=== PATIENT | female | born 1950 | race Caucasian/White ===

== ENCOUNTER 2016-04-28 11:50 | Outpatient (CLI) | payer MEDICARE, OTHER | END 2016-04-28 11:51 | LOC: HPCALD 11:50 | PROVIDERS: ATTEND Physician Assistant | DX: L98.499 Non-pressure chronic ulcer of skin of other sites with unspecified severity (principal) | CPT/HCPCS: 87070; 87205 ==

== ENCOUNTER 2016-07-03 13:10 | Outpatient (CLI) | payer MEDICARE, MEDICAID ==
[2016-07-03 13:29] LABS: #Basophils 0.1 thou/uL (0.0-0.2); #Lymphocytes 0.4 thou/uL (1.20-3.40); #Monocytes 0.4 thou/uL (0.11-0.59); #Neutrophils 3.7 thou/uL (1.40-6.50); %Basophils 1.6 % (0.0-1.0); %Eosinophils 0.9 % (0.0-10.0); %Lymphocytes 9.3 % (21.0-51.0); %Monocytes 8.1 % (0.0-10.0); Hemoglobin 9.4 g/dL (12.0-16.0); Mean Corpuscular HGB CONC 33.3 g/dL (32.0-36.0); Mean Corpuscular Hemoglobin 33.2 pg (27.0-31.0); Mean Corpuscular Volume 99.8 fl (81.0-99.0); Mean Platelet Volume 5.7 fL (7.4-10.4); Platelet Count 261 thou/uL (130-400); RBC Distribution Width 15.7 % (11.5-14.5); Red Blood Cell (RBC) Count 2.82 mill/uL (4.20-5.40); White Blood Cell (WBC) Count 4.7 thou/uL (4.8-10.8)
[2016-07-03 13:30] LABS: MDiff Complete? YES; Manual Diff?? NO
[2016-07-03 13:38] LABS: ALT (SGPT) 8 U/L (8-55); AST (SGOT) 12 U/L (5-34); Albumin 3.4 g/dL (3.4-4.8); Alkaline Phosphatase 79 U/L (40-150); Anion Gap 15 mmol/L (10-20); BUN (Urea Nitrogen) 6 mg/dL (9.8-20.1); Bilirubin, Total 0.5 mg/dL (0.2-1.2); Calc. Creatinine Clearance 0 mL/min (70-130); Calcium 8.7 mg/dL (7.8-10.44); Carbon Dioxide 16 mmol/L (23-31); Chloride 105 mmol/L (98-107); Estimated GFR-MDRD 89; Globulin 2.8 g/dL (2.4-3.5); Glucose 67 mg/dL (80-115); Magnesium 1.9 mg/dL (1.6-2.6); Potassium 4.3 mmol/L (3.5-5.1); Protein, Total 6.2 g/dL (6.0-8.3); Sodium 132 mmol/L (136-145)
== END 2016-07-03 13:11 | disposition home or self-care (01) ==
LOC: HPCALD 13:10
PROVIDERS: ATTEND Family Medicine
DX: E89.0 Postprocedural hypothyroidism (principal); I42.5 Other restrictive cardiomyopathy; C32.1 Malignant neoplasm of supraglottis
CPT/HCPCS: 36415; 80053; 83735; 83880; 84443; 85025

== ENCOUNTER 2016-09-30 14:27 | Outpatient (CLI) | payer MEDICARE, MEDICAID | END 2016-09-30 14:28 | disposition home or self-care (01) | LOC: BURLABSP 14:27 | PROVIDERS: ATTEND Family Medicine | DX: C32.1 Malignant neoplasm of supraglottis (principal) | CPT/HCPCS: 87070; 87077; 87186; 87205 ==

== ENCOUNTER 2016-10-05 10:09 | Outpatient (CLI) | payer MEDICARE, MEDICAID ==
[2016-10-05 11:08] LABS: #Lymphocytes 0.5 thou/uL (1.20-3.40); #Monocytes 0.4 thou/uL (0.11-0.59); #Neutrophils 3.9 thou/uL (1.40-6.50); %Basophils 0.8 % (0.0-1.0); %Eosinophils 0.7 % (0.0-10.0); %Lymphocytes 10.4 % (21.0-51.0); %Monocytes 7.4 % (0.0-10.0); %Neutrophils 80.7 % (42.0-75.0); Hemoglobin 11.6 g/dL (12.0-16.0); Mean Corpuscular HGB CONC 34.4 g/dL (32.0-36.0); Mean Corpuscular Hemoglobin 32.4 pg (27.0-31.0); Mean Corpuscular Volume 94.1 fl (81.0-99.0); Mean Platelet Volume 4.6 fL (7.4-10.4); Platelet Count 195 thou/uL (130-400); RBC Distribution Width 12.3 % (11.5-14.5); Red Blood Cell (RBC) Count 3.59 mill/uL (4.20-5.40); White Blood Cell (WBC) Count 4.8 thou/uL (4.8-10.8)
[2016-10-05 11:15] LABS: ALT (SGPT) 13 U/L (8-55); AST (SGOT) 18 U/L (5-34); Albumin 3.9 g/dL (3.4-4.8); Alkaline Phosphatase 77 U/L (40-150); Anion Gap 14 mmol/L (10-20); BUN (Urea Nitrogen) 8 mg/dL (9.8-20.1); Bilirubin, Total 0.6 mg/dL (0.2-1.2); Calc. Creatinine Clearance 0 mL/min (70-130); Calcium 9.4 mg/dL (7.8-10.44); Carbon Dioxide 21 mmol/L (23-31); Cardiac Risk 2.3 (Less than 4.5); Chloride 96 mmol/L (98-107); Cholesterol 136 mg/dl (< 200 Desired); Estimated GFR-MDRD 81; Globulin 2.7 g/dL (2.4-3.5); Glucose 82 mg/dL (80-115); HDL Cholesterol 58 mg/dL (>60 Neg Risk); LDL Cholesterol, Calculated 61 mg/dL; Protein, Total 6.6 g/dL (6.0-8.3); Sodium 126 mmol/L (136-145); Triglycerides 87 mg/dL (Less than 150)
== END 2016-10-05 10:10 | disposition home or self-care (01) ==
LOC: HPCALD 10:09
PROVIDERS: ATTEND Family Medicine
DX: E89.0 Postprocedural hypothyroidism (principal); E87.1 Hypo-osmolality and hyponatremia; D64.9 Anemia, unspecified; E78.5 Hyperlipidemia, unspecified
CPT/HCPCS: 36415; 80053; 80061; 84443; 85025

== ENCOUNTER 2016-11-04 10:01 | Outpatient (CLI) | payer MEDICARE, MEDICAID ==
[2016-11-04 11:25] LABS: Anion Gap 12 mmol/L (10-20); BUN (Urea Nitrogen) 7 mg/dL (9.8-20.1); Calc. Creatinine Clearance 0 mL/min (70-130); Calcium 9.7 mg/dL (7.8-10.44); Carbon Dioxide 24 mmol/L (23-31); Chloride 99 mmol/L (98-107); Estimated GFR-MDRD 85; Glucose 88 mg/dL (80-115); Magnesium 1.8 mg/dL (1.6-2.6); Potassium 4.5 mmol/L (3.5-5.1); Sodium 130 mmol/L (136-145)
== END 2016-11-04 10:02 | disposition home or self-care (01) ==
LOC: HPCALD 10:01
PROVIDERS: ATTEND Family Medicine
DX: E87.1 Hypo-osmolality and hyponatremia (principal)
CPT/HCPCS: 36415; 80048; 83735

== ENCOUNTER 2018-03-21 09:25 | Outpatient (CLI) | payer MEDICARE, OTHER ==
--- NOTE | 2018-03-21 19:03 | RAD ---
RIGHT KNEE FOUR VIEWS: Date: 03-21-18 FINDINGS: No fracture or joint effusion was seen. Osteophytes are almost nonexistent and there is no narrowing of the joint. There is, however, some calcification of the lateral meniscus and perhaps to a lesser e xtent the medial. This can sometimes be seen in various calcium deposition diseases. IMPRESSION: No significant arthritic change. Meniscal calcifications as noted. See above. POS: HOME
--- NOTE | 2018-03-21 19:07 | RAD ---
LEFT KNEE FOUR VIEWS: Date: 03-21-18 Comparison: Right knee, same date. FINDINGS: Findings are similar in that there is minor arthritic change at best consisting of very minor osteoph ytes. No fracture or effusion was seen. The joint spaces have expected width. Some very faint calcifi cation is seen in each of the menisci. IMPRESSION: Minimal degenerative change. Faint meniscal calcifications. POS: HOME
== END 2018-03-21 09:26 | disposition home or self-care (01) ==
LOC: BURRAD 09:25
PROVIDERS: ATTEND Family Medicine
DX: M17.0 Bilateral primary osteoarthritis of knee (principal); M25.562 Pain in left knee

== ENCOUNTER 2018-09-13 11:42 | Emergency (ER) | payer MEDICARE, MEDICAID ==
[2018-09-13] MEDS ORDERED: Adacel (T-DAP) 0.5 ML SYRINGE ONE (12:32)
--- NOTE | 2018-09-13 13:05 | RAD ---
XR Wrist 3 Rt View STANDARD History: Trauma Comparison: None. Findings: There is a possible fracture of the medial margin of the distal radius extending into the r adiolunate articulation at the lunate fossa. Chondrocalcinosis the triangular fibrocartilage along with the lunotriquetral ligament. Advanced degenerative disease of the thumb carpometacarpal joint. Small effusion of the wrist. Mild osseous demineralization. Narrowing of the second and third metacarpal phalangeal joints. Impression: Findings highly suspicious for intra-articular distal radius fracture medial margin lunat e fossa.
--- NOTE | 2018-09-13 13:06 | RAD ---
XR Humerus Lt 2 View STANDARD History: Trauma. Injury. Tripped and fell. Comparison: None. Findings: No acute fracture or malalignment of the humerus. Dorsal soft tissue calcification is prese nt. No radiopaque foreign object Impression: No acute fracture of the humerus.
--- NOTE | 2018-09-13 13:06 | RAD ---
XR Chest 1 View Portable History: Trauma Comparison: None. Findings: Port catheter tip sits at the inferior SVC. Lungs are clear. No pneumothorax. No effusion. No acute osseous abnormality. Impression: No acute intrathoracic abnormality.
== END 2018-09-13 13:07 | disposition home or self-care (01) ==
LOC: BURERS 11:42
DX: S63.501A Unspecified sprain of right wrist, initial encounter (principal); J44.9 Chronic obstructive pulmonary disease, unspecified; I10 Essential (primary) hypertension; K21.9 Gastro-esophageal reflux disease without esophagitis; Z87.891 Personal history of nicotine dependence; Z79.1 Long term (current) use of non-steroidal anti-inflammatories (NSAID); Z79.899 Other long term (current) drug therapy; Z79.891 Long term (current) use of opiate analgesic; W18.30XA Fall on same level, unspecified, initial encounter
CPT/HCPCS: 29125; 71045; 90471; 90715

== ENCOUNTER 2019-10-05 13:26 | Emergency (ER) | payer MEDICARE, MEDICAID ==
[2019-10-05] MEDS ORDERED: Ibuprofen 200 MG TAB ONE (13:48)
--- NOTE | 2019-10-05 14:58 | RAD ---
THREE VIEWS OF THE LEFT WRIST: INDICATION: Left wrist pain. FINDINGS: There is chondrocalcinosis within the hyalin cartilage of the left wrist as well as the CFC. There i s mild SUT and moderate 1st SMC osteoarthrosis. Carpal alignment is preserved. There is soft tissue swelling surrounding the left breast. No acute fracture is evident. IMPRESSION: 1. 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 2. 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 POS: [facility]
== END 2019-10-05 14:41 | disposition home or self-care (01) ==
LOC: BURERS 13:26
DX: M11.232 Other chondrocalcinosis, left wrist (principal); J44.9 Chronic obstructive pulmonary disease, unspecified; K21.9 Gastro-esophageal reflux disease without esophagitis; I10 Essential (primary) hypertension; Z87.891 Personal history of nicotine dependence; Z79.899 Other long term (current) drug therapy

== ENCOUNTER 2019-11-23 07:53 | Outpatient (CLI) | payer MEDICARE, OTHER ==
[2019-11-23] MEDS ORDERED: Iopamidol 370 76% 100 ML VIAL ONE (11:07)
--- NOTE | 2019-11-23 20:50 | CT ---
CT OF THE CHEST WITH CONTRAST: Date: 11/23/[address] of the chest was performed in this patient with a prior history of laryngeal cancer. Compar daniel is made with the prior study dated 08/31/2016. The lungs are clear, except for some dependent atelectasis posteriorly. A bulla or pneumatocele in th e base of the right upper lobe is stable a little different than the prior exam. I do not see any pul monary masses or nodules to suspect metastatic disease. The mediastinum showed no mass or adenopathy. Calcific changes are seen in the aortic arch and some coronary artery calcifications are present. Th ere is no pericardial effusion. All bony structures appear normal with no sign of lytic or blastic le sions. The scan went into the upper abdomen down to about the mid renal level. As such, all of the liver and spleen were scanned, and much of the pancreas. There was no sign of focal disease in any of these or arina. Down through the mid renal level, the kidneys showed no acute changes. A tiny cyst is suggested in the upper pole of the right kidney. A calcified granuloma is suggested in the splenic hilum. Incidentally noted was an indwelling Port-A-Cath, whose tip is in the area of the distal superior reagan a cava. IMPRESSION: No adverse change since the 2017 exam. The appearance of the chest is stable. There is no evidence of metastatic disease. POS: HOME
--- NOTE | 2019-11-23 21:04 | CT ---
CT OF THE NECK SOFT TISSUES WITH CONTRAST 11/23/19 Comparison is made with the prior CT dated 08/31/16. Axial slices were acquired after administering IV contrast, then coronal and sagittal reconstructions were done. The patient has had prior laryngectomy which accounts for the soft tissue asymmetry at the laryngeal level. The scan is quite similar to the prior study except there is less stranding in the soft tissue s than there was before. I do not see any definite new mass. No adenopathy of concern was noted. The patient has a tracheostomy in place as before. The esophagus joins the airway as previously with the ostium at that point being fairly narrow. A tube is noted in the upper part of this upper esophageal narrowing. There were no areas of pathologic enhancement. Portions of the lower and posterior brain w ere included which showed no abnormal enhancement or obvious mass. No masses were seen in the neck at the moment. The retro-orbital areas were included which were unremarkable. The visible paranasal sin uses and mastoid air cells are clear. Extensive degenerative changes are present in the cervical spin e as previously, particularly at the C4-C5 and C5-C6 levels. IMPRESSION: No adverse change since the prior scan. Less streaking in some of the soft tissues around the operati ve bed than previously. Cannot confirm any nodes of significant size. PET scanning would be the most accurate at determining subtle recurrent disease, however. POS: HOME
== END 2019-11-23 07:54 | disposition home or self-care (01) ==
LOC: BURCT 07:53
DX: Z01.818 Encounter for other preprocedural examination (principal); C32.9 Malignant neoplasm of larynx, unspecified
CPT/HCPCS: 36415; 70491; 71260; 82565; Q9967

== ENCOUNTER 2021-05-08 13:40 | Emergency (ER) | payer OTHER, MEDICAID ==
[2021-05-08] MEDS ORDERED: Fentanyl 100 MCG/2 ML VIAL ONE (15:03)
[2021-05-08] MEDS ORDERED: Sodium Chloride 0.9% 100 ML ONE (15:03)
[2021-05-08] MEDS ORDERED: cefTRIAXone\\ROCEPHIN 1 GM VIAL ONE (15:03)
[2021-05-08 15:06] LABS: ALT (SGPT) 8 U/L (8-55); AST (SGOT) 16 U/L (5-34); Albumin 3.6 g/dL (3.4-4.8); Alkaline Phosphatase 132 U/L (40-110); Anion Gap 17 mmol/L (10-20); BUN (Urea Nitrogen) 15 mg/dL (9.8-20.1); Bilirubin, Total 0.5 mg/dL (0.2-1.2); Calc. Creatinine Clearance 0 mL/min (70-130); Calcium 8.5 mg/dL (7.8-10.44); Carbon Dioxide 19 mmol/L (23-31); Chloride 93 mmol/L (98-107); Globulin 3.1 g/dL (2.4-3.5); Glucose 83 mg/dL (83-110); Potassium 4.7 mmol/L (3.5-5.1); Protein, Total 6.7 g/dL (5.8-8.1); Sodium 124 mmol/L (136-145)
[2021-05-08 15:09] LABS: Hemoglobin 10.7 g/dL (12.0-16.0); Mean Corpuscular HGB CONC 32.5 g/dL (32.0-36.0); Mean Corpuscular Hemoglobin 30.7 pg (27.0-31.0); Mean Corpuscular Volume 94.4 fL (78.0-98.0); Mean Platelet Volume 5.7 fL (7.4-10.4); Platelet Count 165 thou/uL (130-400); RBC Distribution Width 16.5 % (11.5-14.5); Red Blood Cell (RBC) Count 3.49 mill/uL (4.20-5.40); White Blood Cell (WBC) Count 6.8 thou/uL (4.8-10.8)
[2021-05-08 16:43] LABS: Band 3 % (5-11); Eosinophils 1 % (0-10); Lymphocytes 16 % (21-51); MDiff Complete? YES; Monocytes 5 % (0-10); Neutrophil 74 % (42-75)
== END 2021-05-08 17:30 | disposition short-term general hospital (02) ==
LOC: BURERS 13:40
DX: S82.101A Unspecified fracture of upper end of right tibia, initial encounter for closed fracture (principal); R79.1 Abnormal coagulation profile; K21.9 Gastro-esophageal reflux disease without esophagitis; I10 Essential (primary) hypertension; J44.9 Chronic obstructive pulmonary disease, unspecified; W19.XXXA Unspecified fall, initial encounter; Z87.891 Personal history of nicotine dependence; Z79.899 Other long term (current) drug therapy; Z85.21 Personal history of malignant neoplasm of larynx
CPT/HCPCS: 36415; 80053; 83605; 85025; 85379; 87040; 96374; 96375; J0696; J3010; J3490

== ENCOUNTER 2021-05-15 19:15 | Inpatient (IN) | payer MEDICARE, MEDICAID ==
[2021-05-15] MEDS ORDERED: Meclizine HCl 25 MG TAB PO PRN (20:12)
[2021-05-15] MEDS: Metoprolol Tartrate 50 MG TAB PO SCH (20:49)
[2021-05-15] MEDS: Gabapentin 300 MG CAP PO SCH (20:49)
[2021-05-15] MEDS: Cephalexin 250 MG CAP PO SCH (20:49)
[2021-05-15] MEDS: Atorvastatin Calcium 10 MG TAB PO SCH (20:49)
[2021-05-15] MEDS: HYDROcodone/Acetaminophen 10/325 mg Tablet PO PRN (20:51)
[2021-05-16] MEDS: HYDROcodone/Acetaminophen 10/325 mg Tablet PO PRN ×4 (03:21→20:33)
[2021-05-16] MEDS: Levothyroxine Sodium 50 MCG TAB PO SCH (06:01)
[2021-05-16 06:15] LABS: #Basophils 0.1 thou/uL (0.0-0.2); #Eosinphils 0.2 thou/uL (0.0-0.7); #Lymphocytes 0.9 thou/uL (1.20-3.40); #Monocytes 0.4 thou/uL (0.11-0.59); #Neutrophils 3.6 thou/uL (1.40-6.50); %Basophils 1.4 % (0.0-1.0); %Eosinophils 3.4 % (0.0-10.0); %Lymphocytes 18.1 % (21.0-51.0); %Monocytes 7.4 % (0.0-10.0); %Neutrophils 69.7 % (42.0-75.0); ALT (SGPT) Less than 7 U/L (8-55); AST (SGOT) 9 U/L (5-34); Albumin 2.7 g/dL (3.4-4.8); Alkaline Phosphatase 90 U/L (40-110); Anion Gap 14 mmol/L (10-20); BUN (Urea Nitrogen) 5 mg/dL (9.8-20.1); Bilirubin, Total 0.3 mg/dL (0.2-1.2); Calc. Creatinine Clearance 113 mL/min (70-130); Calcium 7.9 mg/dL (7.8-10.44); Carbon Dioxide 20 mmol/L (23-31); Chloride 108 mmol/L (98-107); Globulin 2.6 g/dL (2.4-3.5); Glucose 95 mg/dL (83-110); Mean Corpuscular HGB CONC 32.6 g/dL (32.0-36.0); Mean Corpuscular Volume 95.2 fL (78.0-98.0); Mean Platelet Volume 5.1 fL (7.4-10.4); Platelet Count 221 thou/uL (130-400); Potassium 3.2 mmol/L (3.5-5.1); Protein, Total 5.3 g/dL (5.8-8.1); RBC Distribution Width 17.8 % (11.5-14.5); Red Blood Cell (RBC) Count 2.88 mill/uL (4.20-5.40); Sodium 139 mmol/L (136-145); White Blood Cell (WBC) Count 5.1 thou/uL (4.8-10.8)
[2021-05-16] MEDS ORDERED: Polyethylene Glycol 3350 17 GM Packet PO PRN (07:25)
[2021-05-16] MEDS ORDERED: Ondansetron ODT 4 MG TAB PO PRN (07:25)
[2021-05-16] MEDS ORDERED: FLU VACC QS2021-22(65YR UP)/PF 240 MCG/0.7 ML SYRINGE IM ONE (09:00)
[2021-05-16] MEDS: Metoprolol Tartrate 50 MG TAB PO SCH ×2 (09:29→20:29)
[2021-05-16] MEDS: Potassium Chloride 20 MEQ TAB PO SCH ×2 (09:29→10:38)
[2021-05-16] MEDS: Cephalexin 250 MG CAP PO SCH ×3 (09:30→20:29)
[2021-05-16] MEDS: Enoxaparin Sodium 40 MG/0.4 ML SYRINGE SC SCH (09:30)
[2021-05-16] MEDS: Gabapentin 300 MG CAP PO SCH ×3 (09:31→20:29)
[2021-05-16] MEDS: traMADol HCl 50 MG TAB PO SCH (09:32)
[2021-05-16] MEDS: Losartan 25 MG TAB PO SCH (09:33)
[2021-05-16] MEDS ORDERED: Potassium Bicarbonate/Cit Ac 25 MEQ TAB PO SCH (10:45)
[2021-05-16] MEDS: Atorvastatin Calcium 10 MG TAB PO SCH (20:29)
[2021-05-17] MEDS: HYDROcodone/Acetaminophen 10/325 mg Tablet PO PRN ×5 (01:18→20:39)
[2021-05-17] MEDS: Levothyroxine Sodium 50 MCG TAB PO SCH (05:23)
[2021-05-17] MEDS: traMADol HCl 50 MG TAB PO SCH (09:20)
[2021-05-17] MEDS: Gabapentin 300 MG CAP PO SCH ×3 (09:22→20:30)
[2021-05-17] MEDS: Losartan 25 MG TAB PO SCH (09:22)
[2021-05-17] MEDS: Enoxaparin Sodium 40 MG/0.4 ML SYRINGE SC SCH (09:22)
[2021-05-17] MEDS: Cephalexin 250 MG CAP PO SCH ×3 (09:23→20:29)
[2021-05-17] MEDS: Metoprolol Tartrate 50 MG TAB PO SCH ×2 (09:32→20:30)
[2021-05-17] MEDS ORDERED: Nystatin Powder 15 GM BOT TOP SCH (17:30)
[2021-05-17] MEDS: Atorvastatin Calcium 10 MG TAB PO SCH (20:29)
[2021-05-18] MEDS: HYDROcodone/Acetaminophen 10/325 mg Tablet PO PRN ×5 (01:03→21:00)
[2021-05-18] MEDS: Levothyroxine Sodium 50 MCG TAB PO SCH (05:12)
[2021-05-18] MEDS: Losartan 25 MG TAB PO SCH (08:55)
[2021-05-18] MEDS: traMADol HCl 50 MG TAB PO SCH (08:56)
[2021-05-18] MEDS: Metoprolol Tartrate 50 MG TAB PO SCH ×2 (08:56→20:51)
[2021-05-18] MEDS: Cephalexin 250 MG CAP PO SCH ×3 (08:56→20:59)
[2021-05-18] MEDS: Gabapentin 300 MG CAP PO SCH ×3 (08:58→20:51)
[2021-05-18] MEDS: Enoxaparin Sodium 40 MG/0.4 ML SYRINGE SC SCH (08:59)
[2021-05-18] MEDS: Nystatin Powder 15 GM BOT TOP SCH (08:59)
[2021-05-18] MEDS: Atorvastatin Calcium 10 MG TAB PO SCH (20:51)
[2021-05-18] MEDS ORDERED: Cephalexin 250 MG CAP ONE ×2 (20:56)
[2021-05-18 22:01] LABS: SARS-CoV-2 PCR by NAA Not Detected (NotDetected)
[2021-05-19] MEDS: HYDROcodone/Acetaminophen 10/325 mg Tablet PO PRN ×5 (01:45→21:26)
[2021-05-19] MEDS: Levothyroxine Sodium 50 MCG TAB PO SCH (05:29)
[2021-05-19] MEDS ORDERED: Cephalexin 250 MG CAP ONE (09:51)
[2021-05-19] MEDS: traMADol HCl 50 MG TAB PO SCH (10:03)
[2021-05-19] MEDS: Losartan 25 MG TAB PO SCH (10:04)
[2021-05-19] MEDS: Metoprolol Tartrate 50 MG TAB PO SCH ×2 (10:05→21:28)
[2021-05-19] MEDS: Gabapentin 300 MG CAP PO SCH ×3 (10:05→21:27)
[2021-05-19] MEDS: Cephalexin 250 MG CAP PO SCH ×3 (10:05→21:28)
[2021-05-19] MEDS: Enoxaparin Sodium 40 MG/0.4 ML SYRINGE SC SCH (10:06)
[2021-05-19] MEDS: Nystatin Powder 15 GM BOT TOP SCH ×2 (10:07→21:31)
[2021-05-19] MEDS: Atorvastatin Calcium 10 MG TAB PO SCH (21:27)
[2021-05-20] MEDS: HYDROcodone/Acetaminophen 10/325 mg Tablet PO PRN ×5 (02:57→20:21)
[2021-05-20] MEDS: Levothyroxine Sodium 50 MCG TAB PO SCH (05:29)
[2021-05-20] MEDS: Metoprolol Tartrate 50 MG TAB PO SCH ×2 (09:05→20:23)
[2021-05-20] MEDS: Losartan 25 MG TAB PO SCH (09:05)
[2021-05-20] MEDS: Gabapentin 300 MG CAP PO SCH ×3 (09:05→20:23)
[2021-05-20] MEDS: Cephalexin 250 MG CAP PO SCH ×3 (09:06→20:22)
[2021-05-20] MEDS: traMADol HCl 50 MG TAB PO SCH (09:06)
[2021-05-20] MEDS: Enoxaparin Sodium 40 MG/0.4 ML SYRINGE SC SCH (09:08)
[2021-05-20] MEDS: Atorvastatin Calcium 10 MG TAB PO SCH (20:23)
[2021-05-21] MEDS: HYDROcodone/Acetaminophen 10/325 mg Tablet PO PRN ×5 (03:21→21:47)
[2021-05-21] MEDS: Levothyroxine Sodium 50 MCG TAB PO SCH (05:45)
[2021-05-21] MEDS: Losartan 25 MG TAB PO SCH (10:01)
[2021-05-21] MEDS: Cephalexin 250 MG CAP PO SCH ×3 (10:01→21:46)
[2021-05-21] MEDS: Enoxaparin Sodium 40 MG/0.4 ML SYRINGE SC SCH (10:01)
[2021-05-21] MEDS: Gabapentin 300 MG CAP PO SCH ×3 (10:02→21:47)
[2021-05-21] MEDS: traMADol HCl 50 MG TAB PO SCH (10:03)
[2021-05-21] MEDS: Nystatin Powder 15 GM BOT TOP SCH (10:04)
[2021-05-21] MEDS: Metoprolol Tartrate 50 MG TAB PO SCH ×2 (10:08→21:47)
[2021-05-21] MEDS: Atorvastatin Calcium 10 MG TAB PO SCH (21:46)
[2021-05-22] MEDS: HYDROcodone/Acetaminophen 10/325 mg Tablet PO PRN ×5 (02:09→22:21)
[2021-05-22] MEDS: Levothyroxine Sodium 50 MCG TAB PO SCH (06:00)
[2021-05-22] MEDS: Enoxaparin Sodium 40 MG/0.4 ML SYRINGE SC SCH (08:23)
[2021-05-22] MEDS: traMADol HCl 50 MG TAB PO SCH (08:24)
[2021-05-22] MEDS: Metoprolol Tartrate 50 MG TAB PO SCH ×2 (08:24→11:20)
[2021-05-22] MEDS: Gabapentin 300 MG CAP PO SCH ×3 (08:26→22:04)
[2021-05-22] MEDS: Losartan 25 MG TAB PO SCH (08:31)
[2021-05-22] MEDS: Cephalexin 250 MG CAP PO SCH ×3 (11:20→22:03)
[2021-05-22] MEDS: Nystatin Powder 15 GM BOT TOP SCH (11:37)
[2021-05-22] MEDS: Atorvastatin Calcium 10 MG TAB PO SCH (22:04)
[2021-05-22 23:50] LABS: SARS-CoV-2 PCR by NAA Not Detected (NotDetected)
[2021-05-23] MEDS: HYDROcodone/Acetaminophen 10/325 mg Tablet PO PRN ×5 (03:50→21:35)
[2021-05-23] MEDS: Levothyroxine Sodium 50 MCG TAB PO SCH (05:15)
[2021-05-23] MEDS: Losartan 25 MG TAB PO SCH (08:53)
[2021-05-23] MEDS: Gabapentin 300 MG CAP PO SCH ×3 (08:53→21:35)
[2021-05-23] MEDS: traMADol HCl 50 MG TAB PO SCH (08:54)
[2021-05-23] MEDS: Nystatin Powder 15 GM BOT TOP SCH (08:55)
[2021-05-23] MEDS: Enoxaparin Sodium 40 MG/0.4 ML SYRINGE SC SCH (08:56)
[2021-05-23] MEDS: Metoprolol Tartrate 50 MG TAB PO SCH ×2 (08:56→21:35)
[2021-05-23] MEDS ORDERED: cloNIDine 0.1 MG TAB PO PRN (18:29)
[2021-05-23] MEDS: Atorvastatin Calcium 10 MG TAB PO SCH (21:35)
[2021-05-24] MEDS: Levothyroxine Sodium 50 MCG TAB PO SCH (05:04)
[2021-05-24] MEDS: HYDROcodone/Acetaminophen 10/325 mg Tablet PO PRN ×4 (05:06→21:25)
[2021-05-24] MEDS: Losartan 25 MG TAB PO SCH (10:06)
[2021-05-24] MEDS: Metoprolol Tartrate 50 MG TAB PO SCH ×2 (10:06→21:26)
[2021-05-24] MEDS: Enoxaparin Sodium 40 MG/0.4 ML SYRINGE SC SCH (10:07)
[2021-05-24] MEDS: Gabapentin 300 MG CAP PO SCH ×3 (10:07→21:26)
[2021-05-24] MEDS: Nystatin Powder 15 GM BOT TOP SCH (10:08)
[2021-05-24] MEDS: traMADol HCl 50 MG TAB PO SCH (13:51)
[2021-05-24] MEDS: Atorvastatin Calcium 10 MG TAB PO SCH (21:26)
[2021-05-25] MEDS: Levothyroxine Sodium 50 MCG TAB PO SCH (05:09)
[2021-05-25] MEDS: HYDROcodone/Acetaminophen 10/325 mg Tablet PO PRN ×4 (05:12→17:56)
[2021-05-25] MEDS: Losartan 25 MG TAB PO SCH (09:31)
[2021-05-25] MEDS: Metoprolol Tartrate 50 MG TAB PO SCH ×2 (09:31→20:27)
[2021-05-25] MEDS: Gabapentin 300 MG CAP PO SCH ×3 (09:32→20:26)
[2021-05-25] MEDS: Enoxaparin Sodium 40 MG/0.4 ML SYRINGE SC SCH (09:32)
[2021-05-25] MEDS: Nystatin Powder 15 GM BOT TOP SCH (13:58)
[2021-05-25] MEDS: traMADol HCl 50 MG TAB PO SCH (13:59)
[2021-05-25] MEDS: Atorvastatin Calcium 10 MG TAB PO SCH (20:27)
[2021-05-26] MEDS: HYDROcodone/Acetaminophen 10/325 mg Tablet PO PRN ×5 (02:30→23:04)
[2021-05-26] MEDS: Levothyroxine Sodium 50 MCG TAB PO SCH (05:35)
[2021-05-26] MEDS: traMADol HCl 50 MG TAB PO SCH (08:52)
[2021-05-26] MEDS: Gabapentin 300 MG CAP PO SCH ×3 (08:52→21:14)
[2021-05-26] MEDS: Losartan 25 MG TAB PO SCH (08:52)
[2021-05-26] MEDS: Metoprolol Tartrate 50 MG TAB PO SCH ×2 (08:53→21:14)
[2021-05-26] MEDS: Nystatin Powder 15 GM BOT TOP SCH (08:59)
[2021-05-26] MEDS: Atorvastatin Calcium 10 MG TAB PO SCH (21:14)
[2021-05-27] MEDS: Levothyroxine Sodium 50 MCG TAB PO SCH (06:01)
[2021-05-27] MEDS: Nystatin Powder 15 GM BOT TOP SCH (09:30)
[2021-05-27] MEDS: Losartan 25 MG TAB PO SCH (11:46)
[2021-05-27] MEDS: Gabapentin 300 MG CAP PO SCH ×3 (11:47→21:11)
[2021-05-27] MEDS: Metoprolol Tartrate 50 MG TAB PO SCH ×2 (11:47→21:11)
[2021-05-27] MEDS: traMADol HCl 50 MG TAB PO SCH (11:48)
[2021-05-27] MEDS ORDERED: cefTRIAXone\\ROCEPHIN 500 MG VIAL ONE (14:01)
[2021-05-27] MEDS: HYDROcodone/Acetaminophen 10/325 mg Tablet PO PRN ×2 (17:36→21:14)
[2021-05-27] MEDS: Atorvastatin Calcium 10 MG TAB PO SCH (21:11)
[2021-05-28] MEDS: Levothyroxine Sodium 50 MCG TAB PO SCH (05:35)
[2021-05-28] MEDS: traMADol HCl 50 MG TAB PO SCH (10:52)
[2021-05-28] MEDS: Enoxaparin Sodium 40 MG/0.4 ML SYRINGE SC SCH (10:53)
[2021-05-28] MEDS: Losartan 25 MG TAB PO SCH (10:53)
[2021-05-28] MEDS: Metoprolol Tartrate 50 MG TAB PO SCH ×2 (10:54→20:52)
[2021-05-28] MEDS: Gabapentin 300 MG CAP PO SCH ×3 (10:54→20:52)
[2021-05-28] MEDS: Nystatin Powder 15 GM BOT TOP SCH (10:55)
[2021-05-28] MEDS: HYDROcodone/Acetaminophen 10/325 mg Tablet PO PRN ×2 (14:17→20:52)
[2021-05-28] MEDS ORDERED: Acetaminophen 500 MG TAB PO PRN (17:45)
[2021-05-28] MEDS: Atorvastatin Calcium 10 MG TAB PO SCH (20:51)
[2021-05-29] MEDS: Levothyroxine Sodium 50 MCG TAB PO SCH (05:09)
[2021-05-29] MEDS: HYDROcodone/Acetaminophen 10/325 mg Tablet PO PRN ×4 (06:01→21:56)
[2021-05-29] MEDS: Losartan 25 MG TAB PO SCH (09:19)
[2021-05-29] MEDS: Gabapentin 300 MG CAP PO SCH ×3 (09:19→21:57)
[2021-05-29] MEDS: Enoxaparin Sodium 40 MG/0.4 ML SYRINGE SC SCH (09:19)
[2021-05-29] MEDS: traMADol HCl 50 MG TAB PO SCH (09:20)
[2021-05-29] MEDS: Nystatin Powder 15 GM BOT TOP SCH (09:20)
[2021-05-29] MEDS: Metoprolol Tartrate 50 MG TAB PO SCH ×2 (09:23→21:56)
[2021-05-29 16:03] LABS: SARS-CoV-2 PCR by NAA Not Detected (NotDetected)
[2021-05-29] MEDS: Atorvastatin Calcium 10 MG TAB PO SCH (21:56)
[2021-05-30] MEDS: HYDROcodone/Acetaminophen 10/325 mg Tablet PO PRN ×5 (04:40→23:26)
[2021-05-30] MEDS: Levothyroxine Sodium 50 MCG TAB PO SCH (04:41)
[2021-05-30 05:34] LABS: #Basophils 0.1 thou/uL (0.0-0.2); #Eosinphils 0.2 thou/uL (0.0-0.7); #Lymphocytes 1.2 thou/uL (1.20-3.40); #Monocytes 0.5 thou/uL (0.11-0.59); #Neutrophils 3.5 thou/uL (1.40-6.50); %Basophils 1.9 % (0.0-1.0); %Lymphocytes 22.3 % (21.0-51.0); %Monocytes 8.7 % (0.0-10.0); %Neutrophils 64.1 % (42.0-75.0); Hemoglobin 10.4 g/dL (12.0-16.0); Mean Corpuscular HGB CONC 31.9 g/dL (32.0-36.0); Mean Platelet Volume 5.7 fL (7.4-10.4); Platelet Count 245 thou/uL (130-400); RBC Distribution Width 16.3 % (11.5-14.5); Red Blood Cell (RBC) Count 3.35 mill/uL (4.20-5.40); White Blood Cell (WBC) Count 5.5 thou/uL (4.8-10.8)
[2021-05-30 05:46] LABS: Anion Gap 16 mmol/L (10-20); BUN (Urea Nitrogen) 8 mg/dL (9.8-20.1); Calc. Creatinine Clearance 95 mL/min (70-130); Calcium 8.3 mg/dL (7.8-10.44); Carbon Dioxide 24 mmol/L (23-31); Chloride 103 mmol/L (98-107); Glucose 90 mg/dL (83-110); Potassium 3.8 mmol/L (3.5-5.1); Sodium 139 mmol/L (136-145)
[2021-05-30] MEDS: traMADol HCl 50 MG TAB PO SCH (09:00)
[2021-05-30] MEDS: Enoxaparin Sodium 40 MG/0.4 ML SYRINGE SC SCH (09:43)
[2021-05-30] MEDS: Metoprolol Tartrate 50 MG TAB PO SCH ×2 (09:43→21:16)
[2021-05-30] MEDS: Gabapentin 300 MG CAP PO SCH ×3 (09:43→21:16)
[2021-05-30] MEDS: Losartan 25 MG TAB PO SCH (09:44)
[2021-05-30] MEDS: Nystatin Powder 15 GM BOT TOP SCH (09:52)
[2021-05-30] MEDS: Atorvastatin Calcium 10 MG TAB PO SCH (21:16)
[2021-05-31] MEDS: Levothyroxine Sodium 50 MCG TAB PO SCH (06:07)
[2021-05-31] MEDS: Losartan 25 MG TAB PO SCH (09:40)
[2021-05-31] MEDS: Metoprolol Tartrate 50 MG TAB PO SCH ×2 (09:41→21:40)
[2021-05-31] MEDS: HYDROcodone/Acetaminophen 10/325 mg Tablet PO PRN ×3 (09:42→18:27)
[2021-05-31] MEDS: Gabapentin 300 MG CAP PO SCH ×3 (09:42→21:40)
[2021-05-31] MEDS: Enoxaparin Sodium 40 MG/0.4 ML SYRINGE SC SCH (09:46)
[2021-05-31] MEDS: traMADol HCl 50 MG TAB PO SCH (09:58)
[2021-05-31] MEDS: Nystatin Powder 15 GM BOT TOP SCH (09:58)
[2021-05-31] MEDS: Atorvastatin Calcium 10 MG TAB PO SCH (21:40)
[2021-06-01] MEDS: HYDROcodone/Acetaminophen 10/325 mg Tablet PO PRN ×5 (00:39→22:30)
[2021-06-01] MEDS: Levothyroxine Sodium 50 MCG TAB PO SCH (06:19)
[2021-06-01] MEDS: Enoxaparin Sodium 40 MG/0.4 ML SYRINGE SC SCH (09:02)
[2021-06-01] MEDS: Losartan 25 MG TAB PO SCH (09:02)
[2021-06-01] MEDS: Metoprolol Tartrate 50 MG TAB PO SCH ×2 (09:03→21:45)
[2021-06-01] MEDS: traMADol HCl 50 MG TAB PO SCH (09:07)
[2021-06-01] MEDS: Gabapentin 300 MG CAP PO SCH ×3 (09:08→21:40)
[2021-06-01] MEDS: Nystatin Powder 15 GM BOT TOP SCH (09:14)
[2021-06-01] MEDS: Atorvastatin Calcium 10 MG TAB PO SCH (21:38)
[2021-06-02] MEDS: HYDROcodone/Acetaminophen 10/325 mg Tablet PO PRN ×4 (05:29→18:56)
[2021-06-02] MEDS: Levothyroxine Sodium 50 MCG TAB PO SCH (05:30)
[2021-06-02] MEDS: Metoprolol Tartrate 50 MG TAB PO SCH ×2 (08:13→20:36)
[2021-06-02] MEDS: Gabapentin 300 MG CAP PO SCH ×3 (08:13→20:36)
[2021-06-02] MEDS: traMADol HCl 50 MG TAB PO SCH (08:14)
[2021-06-02] MEDS: Losartan 25 MG TAB PO SCH (08:14)
[2021-06-02] MEDS: Enoxaparin Sodium 40 MG/0.4 ML SYRINGE SC SCH (08:14)
[2021-06-02] MEDS: Nystatin Powder 15 GM BOT TOP SCH (08:15)
[2021-06-02] MEDS: Atorvastatin Calcium 10 MG TAB PO SCH (20:36)
[2021-06-03] MEDS: HYDROcodone/Acetaminophen 10/325 mg Tablet PO PRN ×5 (01:39→21:03)
[2021-06-03] MEDS: Levothyroxine Sodium 50 MCG TAB PO SCH (05:40)
[2021-06-03] MEDS: Losartan 25 MG TAB PO SCH (08:47)
[2021-06-03] MEDS: traMADol HCl 50 MG TAB PO SCH (08:48)
[2021-06-03] MEDS: Nystatin Powder 15 GM BOT TOP SCH (08:48)
[2021-06-03] MEDS: Metoprolol Tartrate 50 MG TAB PO SCH ×2 (08:48→21:04)
[2021-06-03] MEDS: Gabapentin 300 MG CAP PO SCH ×3 (08:48→21:03)
[2021-06-03] MEDS: Enoxaparin Sodium 40 MG/0.4 ML SYRINGE SC SCH (08:49)
[2021-06-03] MEDS: Atorvastatin Calcium 10 MG TAB PO SCH (21:04)
[2021-06-04] MEDS: HYDROcodone/Acetaminophen 10/325 mg Tablet PO PRN ×5 (01:49→19:52)
[2021-06-04] MEDS: Levothyroxine Sodium 50 MCG TAB PO SCH (05:40)
[2021-06-04] MEDS: Gabapentin 300 MG CAP PO SCH ×3 (10:03→20:45)
[2021-06-04] MEDS: Losartan 25 MG TAB PO SCH (10:04)
[2021-06-04] MEDS: Metoprolol Tartrate 50 MG TAB PO SCH ×2 (10:04→20:45)
[2021-06-04] MEDS: Enoxaparin Sodium 40 MG/0.4 ML SYRINGE SC SCH (10:13)
[2021-06-04] MEDS: traMADol HCl 50 MG TAB PO SCH (10:14)
[2021-06-04] MEDS: Nystatin Powder 15 GM BOT TOP SCH (10:18)
[2021-06-04] MEDS: Atorvastatin Calcium 10 MG TAB PO SCH (20:45)
[2021-06-05] MEDS: Levothyroxine Sodium 50 MCG TAB PO SCH (06:27)
[2021-06-05] MEDS: HYDROcodone/Acetaminophen 10/325 mg Tablet PO PRN ×4 (06:27→20:15)
[2021-06-05] MEDS: traMADol HCl 50 MG TAB PO SCH (08:48)
[2021-06-05] MEDS: Gabapentin 300 MG CAP PO SCH ×3 (08:49→20:16)
[2021-06-05] MEDS: Enoxaparin Sodium 40 MG/0.4 ML SYRINGE SC SCH (08:50)
[2021-06-05] MEDS: Losartan 25 MG TAB PO SCH (08:50)
[2021-06-05] MEDS: Metoprolol Tartrate 50 MG TAB PO SCH ×2 (08:50→20:16)
[2021-06-05] MEDS: Nystatin Powder 15 GM BOT TOP SCH (08:51)
[2021-06-05 12:00] LABS: SARS-CoV-2 PCR by NAA Not Detected (NotDetected)
[2021-06-05] MEDS: Atorvastatin Calcium 10 MG TAB PO SCH (20:16)
[2021-06-06] MEDS: HYDROcodone/Acetaminophen 10/325 mg Tablet PO PRN ×5 (01:50→22:40)
[2021-06-06] MEDS: Levothyroxine Sodium 50 MCG TAB PO SCH (05:07)
[2021-06-06] MEDS: traMADol HCl 50 MG TAB PO SCH (08:52)
[2021-06-06] MEDS: Gabapentin 300 MG CAP PO SCH ×3 (08:53→20:23)
[2021-06-06] MEDS: Losartan 25 MG TAB PO SCH (08:53)
[2021-06-06] MEDS: Enoxaparin Sodium 40 MG/0.4 ML SYRINGE SC SCH (08:54)
[2021-06-06] MEDS: Metoprolol Tartrate 50 MG TAB PO SCH ×2 (08:57→20:23)
[2021-06-06] MEDS: Nystatin Powder 15 GM BOT TOP SCH (08:59)
[2021-06-06] MEDS: Atorvastatin Calcium 10 MG TAB PO SCH (20:23)
[2021-06-07] MEDS: HYDROcodone/Acetaminophen 10/325 mg Tablet PO PRN ×4 (03:55→21:04)
[2021-06-07] MEDS: Levothyroxine Sodium 50 MCG TAB PO SCH (05:48)
[2021-06-07] MEDS: Losartan 25 MG TAB PO SCH (09:52)
[2021-06-07] MEDS: Gabapentin 300 MG CAP PO SCH ×3 (09:53→21:02)
[2021-06-07] MEDS: Enoxaparin Sodium 40 MG/0.4 ML SYRINGE SC SCH (09:54)
[2021-06-07] MEDS: Nystatin Powder 15 GM BOT TOP SCH (09:55)
[2021-06-07] MEDS: Metoprolol Tartrate 50 MG TAB PO SCH ×2 (09:55→21:02)
[2021-06-07] MEDS: traMADol HCl 50 MG TAB PO SCH (09:56)
[2021-06-07] MEDS: Atorvastatin Calcium 10 MG TAB PO SCH (21:02)
[2021-06-08] MEDS: Levothyroxine Sodium 50 MCG TAB PO SCH (05:16)
[2021-06-08] MEDS: HYDROcodone/Acetaminophen 10/325 mg Tablet PO PRN ×4 (05:16→20:44)
[2021-06-08] MEDS: Gabapentin 300 MG CAP PO SCH ×3 (08:36→20:44)
[2021-06-08] MEDS: traMADol HCl 50 MG TAB PO SCH (08:37)
[2021-06-08] MEDS: Losartan 25 MG TAB PO SCH (08:38)
[2021-06-08] MEDS: Metoprolol Tartrate 50 MG TAB PO SCH ×2 (08:38→20:44)
[2021-06-08] MEDS: Enoxaparin Sodium 40 MG/0.4 ML SYRINGE SC SCH (08:41)
[2021-06-08] MEDS: Nystatin Powder 15 GM BOT TOP SCH (09:56)
[2021-06-08] MEDS: Atorvastatin Calcium 10 MG TAB PO SCH (20:46)
[2021-06-09] MEDS: HYDROcodone/Acetaminophen 10/325 mg Tablet PO PRN ×4 (02:51→20:25)
[2021-06-09] MEDS: Levothyroxine Sodium 50 MCG TAB PO SCH (05:43)
[2021-06-09] MEDS: Enoxaparin Sodium 40 MG/0.4 ML SYRINGE SC SCH (08:07)
[2021-06-09] MEDS: Losartan 25 MG TAB PO SCH (08:12)
[2021-06-09] MEDS: Gabapentin 300 MG CAP PO SCH ×3 (08:12→20:26)
[2021-06-09] MEDS: traMADol HCl 50 MG TAB PO SCH (08:13)
[2021-06-09] MEDS: Metoprolol Tartrate 50 MG TAB PO SCH ×2 (08:14→20:26)
[2021-06-09] MEDS: Nystatin Powder 15 GM BOT TOP SCH (08:15)
[2021-06-09 10:42] VITALS: BMI 30.7
[2021-06-09] MEDS: Atorvastatin Calcium 10 MG TAB PO SCH (20:26)
[2021-06-10] MEDS: Levothyroxine Sodium 50 MCG TAB PO SCH (05:12)
[2021-06-10] MEDS: HYDROcodone/Acetaminophen 10/325 mg Tablet PO PRN ×5 (05:13→21:26)
[2021-06-10] MEDS ORDERED: cefTRIAXone\\ROCEPHIN 2 GM in Sodium Chloride 0.9% 100 ML IVPB SCH (09:00)
[2021-06-10] MEDS: Losartan 25 MG TAB PO SCH (09:23)
[2021-06-10] MEDS: traMADol HCl 50 MG TAB PO SCH (09:24)
[2021-06-10] MEDS: Enoxaparin Sodium 40 MG/0.4 ML SYRINGE SC SCH (09:25)
[2021-06-10] MEDS: Metoprolol Tartrate 50 MG TAB PO SCH ×2 (09:25→20:14)
[2021-06-10] MEDS: Nystatin Powder 15 GM BOT TOP SCH (09:25)
[2021-06-10] MEDS: Gabapentin 300 MG CAP PO SCH ×3 (09:25→20:14)
[2021-06-10] MEDS: Atorvastatin Calcium 10 MG TAB PO SCH (20:14)
[2021-06-11] MEDS: Levothyroxine Sodium 50 MCG TAB PO SCH (05:14)
[2021-06-11] MEDS: HYDROcodone/Acetaminophen 10/325 mg Tablet PO PRN ×5 (05:18→23:17)
[2021-06-11] MEDS: Enoxaparin Sodium 40 MG/0.4 ML SYRINGE SC SCH (09:19)
[2021-06-11] MEDS: Losartan 25 MG TAB PO SCH (09:19)
[2021-06-11] MEDS: Gabapentin 300 MG CAP PO SCH ×3 (09:20→20:21)
[2021-06-11] MEDS: Metoprolol Tartrate 50 MG TAB PO SCH ×2 (09:21→20:22)
[2021-06-11] MEDS: traMADol HCl 50 MG TAB PO SCH (09:23)
[2021-06-11] MEDS: Nystatin Powder 15 GM BOT TOP SCH (09:24)
[2021-06-11] MEDS: Atorvastatin Calcium 10 MG TAB PO SCH (20:22)
[2021-06-12] MEDS: Levothyroxine Sodium 50 MCG TAB PO SCH (05:27)
[2021-06-12] MEDS: HYDROcodone/Acetaminophen 10/325 mg Tablet PO PRN ×4 (05:29→18:44)
[2021-06-12] MEDS: Metoprolol Tartrate 50 MG TAB PO SCH ×2 (09:15→20:20)
[2021-06-12] MEDS: Losartan 25 MG TAB PO SCH (09:15)
[2021-06-12] MEDS: Gabapentin 300 MG CAP PO SCH ×3 (09:15→20:19)
[2021-06-12] MEDS: Enoxaparin Sodium 40 MG/0.4 ML SYRINGE SC SCH (09:15)
[2021-06-12] MEDS: Nystatin Powder 15 GM BOT TOP SCH (09:21)
[2021-06-12] MEDS: traMADol HCl 50 MG TAB PO SCH (09:22)
[2021-06-12] MEDS: Atorvastatin Calcium 10 MG TAB PO SCH (20:20)
[2021-06-13 00:18] LABS: SARS-CoV-2 PCR by NAA Not Detected (NotDetected)
[2021-06-13 05:05] VITALS: BP 114/69; TEMP 98.6
[2021-06-13] MEDS: Levothyroxine Sodium 50 MCG TAB PO SCH (05:48)
[2021-06-13] MEDS: HYDROcodone/Acetaminophen 10/325 mg Tablet PO PRN ×2 (06:34→10:21)
[2021-06-13] MEDS: traMADol HCl 50 MG TAB PO SCH (08:28)
[2021-06-13] MEDS: Metoprolol Tartrate 50 MG TAB PO SCH (08:29)
[2021-06-13] MEDS: Gabapentin 300 MG CAP PO SCH (08:29)
[2021-06-13] MEDS: Losartan 25 MG TAB PO SCH (08:30)
[2021-06-13] MEDS: Enoxaparin Sodium 40 MG/0.4 ML SYRINGE SC SCH (08:31)
[2021-06-13] MEDS: Nystatin Powder 15 GM BOT TOP SCH (10:20)
== END 2021-06-13 12:00 | disposition home or self-care (01) | DRG 560 ==
LOC: BURMED 19:15
PROVIDERS: ADMIT Family Medicine; ATTEND Family Medicine
DX: S82.151D Displaced fracture of right tibial tuberosity, subsequent encounter for closed fracture with routine healing (principal); L03.115 Cellulitis of right lower limb; W18.30XD Fall on same level, unspecified, subsequent encounter; Z20.822 Contact with and (suspected) exposure to COVID-19; G89.29 Other chronic pain; M25.511 Pain in right shoulder; I10 Essential (primary) hypertension; E78.5 Hyperlipidemia, unspecified; E03.9 Hypothyroidism, unspecified; K22.2 Esophageal obstruction; R13.10 Dysphagia, unspecified; Z85.21 Personal history of malignant neoplasm of larynx; Z79.899 Other long term (current) drug therapy; Z79.890 Hormone replacement therapy
CPT/HCPCS: 36415; 80048; 80053; 85025; J0696; J1642; J1650; Q0162; U0003; U0005

== ENCOUNTER 2021-08-29 16:49 | Inpatient (IN) | payer OTHER ==
[2021-08-29 18:13] VITALS: BMI 30.9
[2021-08-29] MEDS ORDERED: Ondansetron ODT 4 MG TAB PO PRN (21:09)
[2021-08-29] MEDS ORDERED: Polyethylene Glycol 3350 17 GM Packet PO PRN (21:09)
[2021-08-29] MEDS: HYDROcodone/Acetaminophen 10/325 mg Tablet PO PRN (21:23)
[2021-08-29] MEDS: Lorazepam 0.5 MG TAB PO PRN (21:23)
[2021-08-29] MEDS: cloNIDine 0.1 MG TAB PO PRN (21:23)
[2021-08-29] MEDS: Atorvastatin Calcium 40 MG TAB PO SCH (21:25)
[2021-08-29] MEDS: Pregabalin 75 MG CAP PO SCH (21:25)
[2021-08-30] MEDS: HYDROcodone/Acetaminophen 10/325 mg Tablet PO PRN ×3 (04:45→22:07)
[2021-08-30] MEDS: Lorazepam 0.5 MG TAB PO PRN ×4 (05:45→22:59)
[2021-08-30] MEDS ORDERED: Losartan Potassium 50 MG TAB PO SCH (09:00)
[2021-08-30] MEDS ORDERED: Levothyroxine Sodium 50 MCG TAB PO SCH (09:00)
[2021-08-30] MEDS: Aspirin 81 mg Enteric Coated Tablet PO SCH (10:28)
[2021-08-30] MEDS: Enoxaparin Sodium 40 MG/0.4 ML SYRINGE SC SCH (10:29)
[2021-08-30] MEDS: Amlodipine 10 MG TAB PO SCH (10:29)
[2021-08-30] MEDS ORDERED: Losartan 25 MG TAB PO SCH (10:30)
[2021-08-30] MEDS: Pregabalin 75 MG CAP PO SCH ×2 (10:31→21:46)
[2021-08-30] MEDS: cloNIDine 0.1 MG TAB PO PRN (16:05)
[2021-08-30] MEDS: Atorvastatin Calcium 40 MG TAB PO SCH (21:46)
[2021-08-31] MEDS: Levothyroxine Sodium 50 MCG TAB PO SCH (05:27)
[2021-08-31] MEDS: Enoxaparin Sodium 40 MG/0.4 ML SYRINGE SC SCH (08:51)
[2021-08-31] MEDS: Pregabalin 75 MG CAP PO SCH ×2 (08:52→21:14)
[2021-08-31] MEDS: Losartan 25 MG TAB PO SCH (08:52)
[2021-08-31] MEDS: Aspirin 81 mg Enteric Coated Tablet PO SCH (08:53)
[2021-08-31] MEDS: Lorazepam 0.5 MG TAB PO PRN ×2 (08:53→18:30)
[2021-08-31] MEDS: Amlodipine 10 MG TAB PO SCH (08:53)
[2021-08-31] MEDS: HYDROcodone/Acetaminophen 10/325 mg Tablet PO PRN ×2 (14:48→21:15)
[2021-08-31] MEDS: traMADol HCl 50 MG TAB PO PRN (18:29)
[2021-08-31] MEDS: Atorvastatin Calcium 40 MG TAB PO SCH (21:15)
[2021-09-01] MEDS: HYDROcodone/Acetaminophen 10/325 mg Tablet PO PRN ×2 (04:59→21:03)
[2021-09-01] MEDS: Levothyroxine Sodium 50 MCG TAB PO SCH (04:59)
[2021-09-01] MEDS: Saccharomyces boulardii 250 MG CAP PO SCH (10:28)
[2021-09-01] MEDS: Losartan 25 MG TAB PO SCH (10:28)
[2021-09-01] MEDS: Acetaminophen 500 MG TAB PO PRN (10:29)
[2021-09-01] MEDS: Pregabalin 75 MG CAP PO SCH ×2 (10:29→21:04)
[2021-09-01] MEDS: Aspirin 81 mg Enteric Coated Tablet PO SCH (10:30)
[2021-09-01] MEDS: Enoxaparin Sodium 40 MG/0.4 ML SYRINGE SC SCH (10:30)
[2021-09-01] MEDS: Lorazepam 0.5 MG TAB PO PRN ×2 (10:30→21:20)
[2021-09-01] MEDS: Amlodipine 10 MG TAB PO SCH (10:31)
[2021-09-01] MEDS: Atorvastatin Calcium 40 MG TAB PO SCH (21:06)
[2021-09-02] MEDS: Acetaminophen 500 MG TAB PO PRN (10:17)
[2021-09-02] MEDS: Enoxaparin Sodium 40 MG/0.4 ML SYRINGE SC SCH (10:17)
[2021-09-02] MEDS: Losartan 25 MG TAB PO SCH (10:18)
[2021-09-02] MEDS: Saccharomyces boulardii 250 MG CAP PO SCH (10:18)
[2021-09-02] MEDS: Pregabalin 75 MG CAP PO SCH ×2 (10:18→21:35)
[2021-09-02] MEDS: traMADol HCl 50 MG TAB PO PRN (10:19)
[2021-09-02] MEDS: Aspirin 81 mg Enteric Coated Tablet PO SCH (10:20)
[2021-09-02] MEDS: Amlodipine 10 MG TAB PO SCH (10:20)
[2021-09-02] MEDS: Lorazepam 0.5 MG TAB PO PRN ×2 (10:20→17:59)
[2021-09-02] MEDS: Levothyroxine Sodium 50 MCG TAB PO SCH (11:54)
[2021-09-02] MEDS: HYDROcodone/Acetaminophen 10/325 mg Tablet PO PRN (17:55)
[2021-09-02] MEDS: Atorvastatin Calcium 40 MG TAB PO SCH (21:36)
[2021-09-03] MEDS: HYDROcodone/Acetaminophen 10/325 mg Tablet PO PRN ×3 (03:34→20:37)
[2021-09-03] MEDS: Levothyroxine Sodium 50 MCG TAB PO SCH (03:35)
[2021-09-03] MEDS: Lorazepam 0.5 MG TAB PO PRN ×4 (04:30→22:26)
[2021-09-03] MEDS: Saccharomyces boulardii 250 MG CAP PO SCH (09:37)
[2021-09-03] MEDS: Pregabalin 75 MG CAP PO SCH ×2 (09:37→20:36)
[2021-09-03] MEDS: Losartan Potassium 50 MG TAB PO SCH (09:38)
[2021-09-03] MEDS: Amlodipine 10 MG TAB PO SCH (09:39)
[2021-09-03] MEDS: Aspirin 81 mg Enteric Coated Tablet PO SCH (09:39)
[2021-09-03] MEDS: Acetaminophen 500 MG TAB PO PRN ×2 (09:39→16:45)
[2021-09-03] MEDS: Enoxaparin Sodium 40 MG/0.4 ML SYRINGE SC SCH (09:40)
[2021-09-03] MEDS: traMADol HCl 50 MG TAB PO PRN (16:45)
[2021-09-03] MEDS: Atorvastatin Calcium 40 MG TAB PO SCH (20:37)
[2021-09-04] MEDS: Levothyroxine Sodium 50 MCG TAB PO SCH (05:29)
[2021-09-04] MEDS: Losartan Potassium 50 MG TAB PO SCH (07:35)
[2021-09-04] MEDS: Enoxaparin Sodium 40 MG/0.4 ML SYRINGE SC SCH (07:35)
[2021-09-04] MEDS: Pregabalin 75 MG CAP PO SCH ×2 (07:36→22:29)
[2021-09-04] MEDS: Saccharomyces boulardii 250 MG CAP PO SCH (07:36)
[2021-09-04] MEDS: Amlodipine 10 MG TAB PO SCH (07:37)
[2021-09-04] MEDS: Lorazepam 0.5 MG TAB PO PRN ×3 (07:37→22:30)
[2021-09-04] MEDS: Aspirin 81 mg Enteric Coated Tablet PO SCH (07:38)
[2021-09-04] MEDS: HYDROcodone/Acetaminophen 10/325 mg Tablet PO PRN (10:08)
[2021-09-04] MEDS: Atorvastatin Calcium 40 MG TAB PO SCH (22:29)
[2021-09-05] MEDS: Levothyroxine Sodium 50 MCG TAB PO SCH (05:37)
[2021-09-05] MEDS: Losartan Potassium 50 MG TAB PO SCH (08:38)
[2021-09-05] MEDS: Enoxaparin Sodium 40 MG/0.4 ML SYRINGE SC SCH (08:38)
[2021-09-05] MEDS: Pregabalin 75 MG CAP PO SCH ×2 (08:38→20:48)
[2021-09-05] MEDS: Lorazepam 0.5 MG TAB PO PRN ×2 (08:39→20:59)
[2021-09-05] MEDS: Amlodipine 10 MG TAB PO SCH (08:39)
[2021-09-05] MEDS: Aspirin 81 mg Enteric Coated Tablet PO SCH (08:39)
[2021-09-05] MEDS: Saccharomyces boulardii 250 MG CAP PO SCH (08:39)
[2021-09-05] MEDS: Nystatin Powder 15 GM BOT TOP PRN ×2 (08:40→20:52)
[2021-09-05] MEDS: Aspirin Chewable 81 MG TAB ONE (13:54)
[2021-09-05] MEDS ORDERED: Aspirin 81 mg Enteric Coated Tablet PO SCH (14:00)
[2021-09-05 14:25] LABS: #Eosinphils 0.1 thou/uL (0.0-0.7); #Monocytes 0.5 thou/uL (0.11-0.59); #Neutrophils 4.7 thou/uL (1.40-6.50); %Basophils 0.6 % (0.0-1.0); %Eosinophils 1.1 % (0.0-10.0); %Lymphocytes 16.3 % (21.0-51.0); %Monocytes 7.5 % (0.0-10.0); %Neutrophils 74.5 % (42.0-75.0); Hemoglobin 12.1 g/dL (12.0-16.0); Mean Corpuscular HGB CONC 32.5 g/dL (32.0-36.0); Mean Corpuscular Hemoglobin 32.4 pg (27.0-31.0); Mean Corpuscular Volume 99.6 fL (78.0-98.0); Mean Platelet Volume 4.9 fL (7.4-10.4); Platelet Count 253 thou/uL (130-400); RBC Distribution Width 18.1 % (11.5-14.5); Red Blood Cell (RBC) Count 3.74 mill/uL (4.20-5.40); White Blood Cell (WBC) Count 6.3 thou/uL (4.8-10.8)
[2021-09-05] MEDS ORDERED: Sodium Chloride 0.9% 500 ML IVPB SCH (14:30)
[2021-09-05 14:35] LABS: ALT (SGPT) 17 U/L (8-55); AST (SGOT) 30 U/L (5-34); Albumin 3.1 g/dL (3.4-4.8); Alkaline Phosphatase 113 U/L (40-110); Anion Gap 13 mmol/L (10-20); BUN (Urea Nitrogen) 8 mg/dL (9.8-20.1); Bilirubin, Total 0.4 mg/dL (0.2-1.2); Calc. Creatinine Clearance 89 mL/min (70-130); Calcium 7.9 mg/dL (7.8-10.44); Carbon Dioxide 23 mmol/L (23-31); Chloride 110 mmol/L (98-107); Estimated GFR 86; Globulin 3.1 g/dL (2.4-3.5); Glucose 122 mg/dL (83-110); Potassium 3.5 mmol/L (3.5-5.1); Protein, Total 6.2 g/dL (5.8-8.1); Sodium 142 mmol/L (136-145); Troponin I Less than 0.010 ng/mL (< 0.028)
[2021-09-05] MEDS: HYDROcodone/Acetaminophen 10/325 mg Tablet PO PRN (16:44)
[2021-09-05 16:53] LABS: Troponin I Less than 0.010 ng/mL (< 0.028)
[2021-09-05 20:43] LABS: Troponin I Less than 0.010 ng/mL (< 0.028)
[2021-09-05] MEDS: Atorvastatin Calcium 40 MG TAB PO SCH (20:48)
[2021-09-06] MEDS: Levothyroxine Sodium 50 MCG TAB PO SCH (05:19)
[2021-09-06] MEDS: Enoxaparin Sodium 40 MG/0.4 ML SYRINGE SC SCH (08:58)
[2021-09-06] MEDS: Losartan Potassium 50 MG TAB PO SCH (08:59)
[2021-09-06] MEDS: Saccharomyces boulardii 250 MG CAP PO SCH (08:59)
[2021-09-06] MEDS: Pregabalin 75 MG CAP PO SCH ×2 (09:00→22:24)
[2021-09-06] MEDS: Lorazepam 0.5 MG TAB PO PRN ×2 (09:01→23:46)
[2021-09-06] MEDS: Aspirin 81 mg Enteric Coated Tablet PO SCH (09:01)
[2021-09-06] MEDS: Amlodipine 10 MG TAB PO SCH (09:01)
[2021-09-06] MEDS: HYDROcodone/Acetaminophen 10/325 mg Tablet PO PRN (11:29)
[2021-09-06] MEDS: Atorvastatin Calcium 40 MG TAB PO SCH (22:24)
[2021-09-06] MEDS: Nystatin Powder 15 GM BOT TOP PRN (22:26)
[2021-09-06] MEDS: traMADol HCl 50 MG TAB PO PRN (23:51)
[2021-09-07] MEDS: HYDROcodone/Acetaminophen 10/325 mg Tablet PO PRN ×3 (06:09→18:26)
[2021-09-07] MEDS: Levothyroxine Sodium 50 MCG TAB PO SCH (06:09)
[2021-09-07] MEDS: Losartan Potassium 50 MG TAB PO SCH (09:34)
[2021-09-07] MEDS: Pregabalin 75 MG CAP PO SCH ×2 (09:35→22:05)
[2021-09-07] MEDS: Amlodipine 10 MG TAB PO SCH (09:36)
[2021-09-07] MEDS: Aspirin 81 mg Enteric Coated Tablet PO SCH (09:36)
[2021-09-07] MEDS: Lorazepam 0.5 MG TAB PO PRN ×2 (09:36→22:06)
[2021-09-07] MEDS: Saccharomyces boulardii 250 MG CAP PO SCH (09:37)
[2021-09-07] MEDS: Enoxaparin Sodium 40 MG/0.4 ML SYRINGE SC SCH (09:37)
[2021-09-07] MEDS: traMADol HCl 50 MG TAB PO PRN ×2 (09:47→22:06)
[2021-09-07] MEDS: Atorvastatin Calcium 40 MG TAB PO SCH (22:05)
[2021-09-07] MEDS: Nystatin Powder 15 GM BOT TOP PRN (22:10)
[2021-09-08] MEDS: Levothyroxine Sodium 50 MCG TAB PO SCH (04:11)
[2021-09-08] MEDS: HYDROcodone/Acetaminophen 10/325 mg Tablet PO PRN ×3 (04:11→18:40)
[2021-09-08] MEDS: Acetaminophen 500 MG TAB PO PRN (07:30)
[2021-09-08] MEDS: traMADol HCl 50 MG TAB PO PRN (07:32)
[2021-09-08] MEDS: Enoxaparin Sodium 40 MG/0.4 ML SYRINGE SC SCH (08:32)
[2021-09-08] MEDS: Saccharomyces boulardii 250 MG CAP PO SCH (08:34)
[2021-09-08] MEDS: Pregabalin 75 MG CAP PO SCH ×2 (08:35→21:28)
[2021-09-08] MEDS: Losartan Potassium 50 MG TAB PO SCH (08:35)
[2021-09-08] MEDS: Amlodipine 10 MG TAB PO SCH (08:36)
[2021-09-08] MEDS: Aspirin 81 mg Enteric Coated Tablet PO SCH (08:37)
[2021-09-08] MEDS: Lorazepam 0.5 MG TAB PO PRN ×2 (08:48→21:31)
[2021-09-08] MEDS: Atorvastatin Calcium 40 MG TAB PO SCH (21:29)
[2021-09-09] MEDS: HYDROcodone/Acetaminophen 10/325 mg Tablet PO PRN ×4 (02:44→22:05)
[2021-09-09] MEDS: Levothyroxine Sodium 50 MCG TAB PO SCH (05:10)
[2021-09-09] MEDS: Enoxaparin Sodium 40 MG/0.4 ML SYRINGE SC SCH (08:58)
[2021-09-09] MEDS: Losartan Potassium 50 MG TAB PO SCH (08:58)
[2021-09-09] MEDS: traMADol HCl 50 MG TAB PO PRN (09:09)
[2021-09-09] MEDS: Pregabalin 75 MG CAP PO SCH (09:10)
[2021-09-09] MEDS: Aspirin 81 mg Enteric Coated Tablet PO SCH (09:11)
[2021-09-09] MEDS: Amlodipine 10 MG TAB PO SCH (09:12)
[2021-09-09] MEDS: Saccharomyces boulardii 250 MG CAP PO SCH (09:16)
[2021-09-09] MEDS ORDERED: Colchicine 0.6 MG TAB PO SCH ×2 (13:30→14:30)
[2021-09-09] MEDS: Lorazepam 0.5 MG TAB PO PRN (20:48)
[2021-09-09] MEDS: Atorvastatin Calcium 40 MG TAB PO SCH (20:49)
[2021-09-09] MEDS: Gabapentin 300 MG CAP PO SCH (20:49)
[2021-09-10] MEDS: HYDROcodone/Acetaminophen 10/325 mg Tablet PO PRN ×3 (05:14→17:38)
[2021-09-10] MEDS: Levothyroxine Sodium 50 MCG TAB PO SCH (05:15)
[2021-09-10] MEDS: Losartan Potassium 50 MG TAB PO SCH (08:35)
[2021-09-10] MEDS: Aspirin 81 mg Enteric Coated Tablet PO SCH (08:35)
[2021-09-10] MEDS: Ibuprofen 600 MG TAB PO SCH (08:35)
[2021-09-10] MEDS: Enoxaparin Sodium 40 MG/0.4 ML SYRINGE SC SCH (08:35)
[2021-09-10] MEDS: Colchicine 0.6 MG TAB PO SCH (08:37)
[2021-09-10] MEDS: Gabapentin 300 MG CAP PO SCH ×2 (08:37→21:03)
[2021-09-10] MEDS: Saccharomyces boulardii 250 MG CAP PO SCH (08:38)
[2021-09-10] MEDS: Amlodipine 10 MG TAB PO SCH (08:44)
[2021-09-10] MEDS: Lorazepam 0.5 MG TAB PO PRN (15:52)
[2021-09-10] MEDS: Loperamide HCl 2 MG CAP PO PRN (17:41)
[2021-09-10] MEDS: Atorvastatin Calcium 40 MG TAB PO SCH (21:03)
[2021-09-10] MEDS: Nystatin Powder 15 GM BOT TOP PRN (21:04)
[2021-09-11] MEDS: Nystatin Powder 15 GM BOT TOP PRN ×2 (01:18→21:39)
[2021-09-11] MEDS: HYDROcodone/Acetaminophen 10/325 mg Tablet PO PRN ×3 (01:18→17:36)
[2021-09-11] MEDS: Loperamide HCl 2 MG CAP PO PRN (01:53)
[2021-09-11] MEDS: Levothyroxine Sodium 50 MCG TAB PO SCH (06:03)
[2021-09-11] MEDS: Saccharomyces boulardii 250 MG CAP PO SCH (09:06)
[2021-09-11] MEDS: Colchicine 0.6 MG TAB PO SCH (09:06)
[2021-09-11] MEDS: Enoxaparin Sodium 40 MG/0.4 ML SYRINGE SC SCH (09:06)
[2021-09-11] MEDS: Losartan Potassium 50 MG TAB PO SCH (09:07)
[2021-09-11] MEDS: Amlodipine 10 MG TAB PO SCH (09:07)
[2021-09-11] MEDS: Aspirin 81 mg Enteric Coated Tablet PO SCH (09:07)
[2021-09-11] MEDS: Ibuprofen 600 MG TAB PO SCH (09:08)
[2021-09-11] MEDS: Gabapentin 300 MG CAP PO SCH ×2 (09:11→21:35)
[2021-09-11] MEDS: traMADol HCl 50 MG TAB PO PRN (21:34)
[2021-09-11] MEDS: Acetaminophen 500 MG TAB PO PRN (21:35)
[2021-09-11] MEDS: Atorvastatin Calcium 40 MG TAB PO SCH (21:36)
[2021-09-12] MEDS: HYDROcodone/Acetaminophen 10/325 mg Tablet PO PRN ×2 (06:02→11:53)
[2021-09-12] MEDS: Levothyroxine Sodium 50 MCG TAB PO SCH (06:02)
[2021-09-12] MEDS: Losartan Potassium 50 MG TAB PO SCH (09:51)
[2021-09-12] MEDS: Ibuprofen 600 MG TAB PO SCH (09:51)
[2021-09-12] MEDS: Amlodipine 10 MG TAB PO SCH (09:51)
[2021-09-12] MEDS: Gabapentin 300 MG CAP PO SCH ×2 (09:52→20:31)
[2021-09-12] MEDS: Colchicine 0.6 MG TAB PO SCH (09:53)
[2021-09-12] MEDS: Aspirin 81 mg Enteric Coated Tablet PO SCH (09:53)
[2021-09-12] MEDS: Saccharomyces boulardii 250 MG CAP PO SCH (09:53)
[2021-09-12] MEDS: Enoxaparin Sodium 40 MG/0.4 ML SYRINGE SC SCH (09:54)
[2021-09-12] MEDS: Loperamide HCl 2 MG CAP PO PRN (18:46)
[2021-09-12] MEDS: Atorvastatin Calcium 40 MG TAB PO SCH (20:28)
[2021-09-12] MEDS: Lorazepam 0.5 MG TAB PO PRN (20:28)
[2021-09-13] MEDS: HYDROcodone/Acetaminophen 10/325 mg Tablet PO PRN ×2 (02:12→08:36)
[2021-09-13 05:15] VITALS: BP 156/70; TEMP 98.3
[2021-09-13] MEDS: Levothyroxine Sodium 50 MCG TAB PO SCH (05:36)
[2021-09-13] MEDS: Loperamide HCl 2 MG CAP PO PRN (05:40)
[2021-09-13] MEDS: Enoxaparin Sodium 40 MG/0.4 ML SYRINGE SC SCH (08:37)
[2021-09-13] MEDS: Aspirin 81 mg Enteric Coated Tablet PO SCH (08:38)
[2021-09-13] MEDS: Ibuprofen 600 MG TAB PO SCH (08:38)
[2021-09-13] MEDS: Losartan Potassium 50 MG TAB PO SCH (08:38)
[2021-09-13] MEDS: Amlodipine 10 MG TAB PO SCH (08:38)
[2021-09-13] MEDS: Saccharomyces boulardii 250 MG CAP PO SCH (08:38)
[2021-09-13] MEDS: Colchicine 0.6 MG TAB PO SCH (08:38)
[2021-09-13] MEDS: Gabapentin 300 MG CAP PO SCH (08:39)
== END 2021-09-13 11:45 | DRG 64 ==
LOC: BURMED 18:03
PROVIDERS: ADMIT Family Medicine; ATTEND Family Medicine
DX: I63.423 Cerebral infarction due to embolism of bilateral anterior cerebral arteries (principal); U07.1 COVID-19; I50.42 Chronic combined systolic (congestive) and diastolic (congestive) heart failure; I63.411 Cerebral infarction due to embolism of right middle cerebral artery; I63.431 Cerebral infarction due to embolism of right posterior cerebral artery; E03.9 Hypothyroidism, unspecified; G89.4 Chronic pain syndrome; F41.9 Anxiety disorder, unspecified; E78.5 Hyperlipidemia, unspecified; M25.511 Pain in right shoulder; G83.24 Monoplegia of upper limb affecting left nondominant side; I11.0 Hypertensive heart disease with heart failure; K21.9 Gastro-esophageal reflux disease without esophagitis; Z87.891 Personal history of nicotine dependence; Z93.0 Tracheostomy status; Z85.21 Personal history of malignant neoplasm of larynx; Z90.02 Acquired absence of larynx; Z93.1 Gastrostomy status
CPT/HCPCS: 36416; 71045; 80053; 83880; 84484; 85025; 36415-59; J1642; J1650; J7030